=== PATIENT | male | born 1970 | race Native Hawaiian/Other Pacific Islander ===

== ENCOUNTER → 2017-04-29 16:44 | Outpatient (CLI) | payer OTHER | END | disposition home or self-care (01) | LOC: AMB 16:44 | DX: Z04.1 Encounter for examination and observation following transport accident (principal) ==

== ENCOUNTER 2020-10-05 12:18 | Emergency (ER) | payer OTHER ==
[~2020-10-05] VITALS: Ht 175.3 cm; Wt 83.0 kg
[2020-10-05 13:36] VITALS: BP 176/95; TEMP 97.8
== END 2020-10-05 13:36 | disposition home or self-care (01) ==
LOC: ED 12:18
DX: M79.672 Pain in left foot (principal); M79.671 Pain in right foot
CPT/HCPCS: 96372; 99282; 99283; J1885; J2930

== ENCOUNTER 2021-01-04 15:40 | Emergency (ER) | payer OTHER ==
[~2021-01-04] VITALS: Ht 175.3 cm; Wt 83.0 kg
[2021-01-04 16:50] VITALS: BP 151/85; TEMP 98.7
== END 2021-01-04 16:50 | disposition home or self-care (01) ==
LOC: ED 15:40
DX: S60.562A Insect bite (nonvenomous) of left hand, initial encounter (principal); W57.XXXA Bitten or stung by nonvenomous insect and other nonvenomous arthropods, initial encounter; Y92.89 Other specified places as the place of occurrence of the external cause
CPT/HCPCS: 99282

== ENCOUNTER 2022-10-26 18:02 | Emergency (ER) | payer OTHER ==
[~2022-10-26] VITALS: Ht 175.3 cm; Wt 75.8 kg
[2022-10-26 18:02] VITALS: BP 156/93; TEMP 97.8
== END 2022-10-26 19:49 | disposition short-term general hospital (02) ==
LOC: ED 18:02
DX: S68.117A Complete traumatic metacarpophalangeal amputation of left little finger, initial encounter (principal); F17.210 Nicotine dependence, cigarettes, uncomplicated; X58.XXXA Exposure to other specified factors, initial encounter
CPT/HCPCS: 90472; 90715; 96374; 96375; 99284; J2270; J2405; J7040

== ENCOUNTER 2022-11-01 17:17 | Outpatient (CLI) | payer OTHER ==
[2022-11-01 17:49] LABS: POTASSIUM 4.2 mmol/L (3.6-5.2)
[2022-11-01 18:02] LABS: PLATELET COUNT 323 K/uL (142-355)
== END 2022-11-01 18:53 | disposition home or self-care (01) ==
LOC: RESP 17:17
PROVIDERS: ATTEND Orthopaedic Surgery
DX: Z01.818 Encounter for other preprocedural examination (principal)
CPT/HCPCS: 36415; 80048; 85027; 93005